=== PATIENT | female | born 1950 | race Caucasian/White ===

== ENCOUNTER 2017-02-04 08:49 | Inpatient (IN) | payer MEDICARE, MEDICAID ==
[~2017-02-04] VITALS: Ht 157.5 cm; Wt 134.5 kg
[2017-02-04] MEDS ORDERED: MORPHINE SULFATE 4 MG/ML, 1ML ONE ×2 (09:59→10:58)
[2017-02-04] MEDS ORDERED: ALBUTEROL/IPRATROPIUM 2.5MG/0.5MG, 3 ML NPPB ONE (10:00)
[2017-02-04] MEDS ORDERED: CEFTRIAXONE PMX 1GM/50ML 50 ML IVPB ONE (10:00)
[2017-02-04] MEDS ORDERED: AZITHROMYCIN 500 MG in SODIUM CHLORIDE 0.9% 250 ML IVPB ONE (10:00)
[2017-02-04] MEDS ORDERED: SODIUM CHLORIDE 0.9% 1,000ML IVBOLUS ONE ×2 (10:00→11:30)
[2017-02-04] MEDS ORDERED: SODIUM CHLORIDE FLUSH 10ML SYR IVF ONE (10:00)
[2017-02-04] MEDS: MORPHINE SULFATE 4 MG/ML, 1ML IVPush PRN ×2 (10:01→11:00)
[2017-02-04 10:40] LABS: BLOOD UREA NITROGEN 16 mg/dL (7-18)
[2017-02-04 10:44] LABS: IS PT STATUS REG ER OR PRE ER? YES
[2017-02-04] MEDS ORDERED: CEFTRIAXONE PMX 1GM/50ML 50 ML ONE (10:45)
[2017-02-04] MEDS ORDERED: ALBUTEROL/IPRATROPIUM 2.5MG/0.5MG, 3 ML ONE (11:05)
[2017-02-04] MEDS ORDERED: METOPROLOL TARTRATE 50 MG TABLET ONE (11:23)
[2017-02-04] MEDS ORDERED: METOPROLOL SUCCINATE 25 MG TAB.ER.24H PO STA (11:28)
[2017-02-04] MEDS ORDERED: ENOXAPARIN 120MG/0.8ML SQ ONE (12:00)
[2017-02-04] MEDS ORDERED: DIPH25CA61 PO (12:03)
[2017-02-04] MEDS ORDERED: PRED5TAB PO (12:03)
[2017-02-04] MEDS ORDERED: MAGN400T26 PO (12:03)
[2017-02-04] MEDS ORDERED: FERR325T10 PO (12:03)
[2017-02-04] MEDS ORDERED: SERT50TA PO (12:03)
[2017-02-04] MEDS ORDERED: MONT10TA6 PO (12:03)
[2017-02-04] MEDS ORDERED: HYDR200T PO (12:03)
[2017-02-04] MEDS ORDERED: OMEP-110 PO (12:03)
[2017-02-04] MEDS ORDERED: CYAN500T42 PO (12:03)
[2017-02-04] MEDS ORDERED: FOLI-17 PO (12:03)
[2017-02-04] MEDS ORDERED: PRAV20TA PO (12:03)
[2017-02-04] MEDS ORDERED: METH2.5T PO (12:03)
[2017-02-04] MEDS ORDERED: ALPR1TAB6 PO (12:03)
[2017-02-04] MEDS ORDERED: BACL-19 PO (12:03)
[2017-02-04] MEDS ORDERED: HYDR-882 PO (12:03)
[2017-02-04] MEDS ORDERED: ARIP5TAB6 PO (12:03)
[2017-02-04] MEDS ORDERED: ALEN70TA5 PO (12:03)
[2017-02-04] MEDS ORDERED: NALT50TA PO (12:03)
[2017-02-04] MEDS ORDERED: METO25TA35 PO (12:03)
[2017-02-04] MEDS ORDERED: ALBUTEROL SULFATE 2.5 MG/3 ML ONE (12:59)
[2017-02-04] MEDS ORDERED: DILTIAZEM 5 MG/ML, 5ML IVPush PRN (13:00)
[2017-02-04] MEDS ORDERED: BISACODYL 10 MG SUPP PR PRN (13:00)
[2017-02-04] MEDS ORDERED: Enoxaparin 1 mg/kg protocol SQ SCH (13:00)
[2017-02-04] MEDS ORDERED: POLYETHYLENE GLYCOL 17 GM PACKET PO PRN (13:00)
[2017-02-04] MEDS ORDERED: DOCUSATE 100 MG CAPSULE PO PRN (13:00)
[2017-02-04] MEDS: ALBUTEROL SULFATE 2.5 MG/3 ML NPPB SCH ×3 (13:00→19:30)
[2017-02-04] MEDS: CEFTRIAXONE PMX 1GM/50ML 50 ML IV SCH (13:00)
[2017-02-04] MEDS ORDERED: ONDANSETRON 2MG/ML, 2ML IVPush PRN (13:00)
[2017-02-04] MEDS ORDERED: MORPHINE SULFATE 4 MG/ML, 1ML IVPush PRN (13:00)
[2017-02-04 13:26] LABS: IS PT STATUS REG ER OR PRE ER? YES
[2017-02-04] MEDS: DOXYCYCLINE 100 MG in DEXTROSE 5% 250 ML IV SCH (14:10)
[2017-02-04 16:40] VITALS: BP 131/76
[2017-02-04] MEDS: FERROUS SULFATE 325 MG TABLET PO SCH ×2 (16:59→21:12)
[2017-02-04] MEDS ORDERED: ENOXAPARIN 120MG/0.8ML SQ SCH (17:00)
[2017-02-04] MEDS: SODIUM CHLORIDE 0.9% 1,000 ML IV SCH ×2 (17:03→21:12)
[2017-02-04 18:48] LABS: IS PT STATUS REG ER OR PRE ER? NO
[2017-02-04 19:00] VITALS: BP 129/90
[2017-02-04] MEDS: HYDROXYCHLOROQUINE 200 MG TABLET PO SCH (21:11)
[2017-02-04] MEDS: ALPRazolam 1MG TABLET PO PRN (21:11)
[2017-02-04] MEDS: PRAVASTATIN 20 MG TABLET PO SCH (21:12)
[2017-02-04] MEDS: ARIPIPRAZOLE 5 MG TABLET PO SCH (21:12)
[2017-02-04] MEDS: METOPROLOL TARTRATE 25 MG TABLET PO SCH (21:12)
[2017-02-04] MEDS: ENOXAPARIN 120MG/0.8ML SQ SCH (22:57)
[2017-02-05 01:02] VITALS: BP 136/56
[2017-02-05] MEDS: DOXYCYCLINE 100 MG in DEXTROSE 5% 250 ML IV SCH ×2 (01:17→15:09)
[2017-02-05] MEDS ORDERED: ACETAMINOPHEN 325 MG TABLET PO PRN (01:30)
[2017-02-05] MEDS: GUAIFENESIN/DM 200-20MG, 10ML UDC PO PRN (04:19)
[2017-02-05 06:26] LABS: ASPARTATE AMINO TRANSFERASE 23 U/L (15-37); BLOOD UREA NITROGEN 14 mg/dL (7-18)
[2017-02-05 06:36] VITALS: BP 97/54
[2017-02-05] MEDS: ALBUTEROL SULFATE 2.5 MG/3 ML NPPB SCH ×5 (07:00→22:53)
[2017-02-05] MEDS: METOPROLOL TARTRATE 25 MG TABLET PO SCH ×2 (09:05→20:15)
[2017-02-05] MEDS: SENNA/DOCUSATE TABLET PO SCH (09:05)
[2017-02-05] MEDS: MONTELUKAST 10 MG TABLET PO SCH (09:05)
[2017-02-05] MEDS: SERTRALINE 50MG TABLET PO SCH (09:05)
[2017-02-05] MEDS: MAGNESIUM OXIDE 400 MG TABLET PO SCH (09:06)
[2017-02-05] MEDS: FERROUS SULFATE 325 MG TABLET PO SCH ×3 (09:06→20:15)
[2017-02-05] MEDS: FOLIC ACID 1 MG TABLET PO SCH (09:06)
[2017-02-05] MEDS: HYDROXYCHLOROQUINE 200 MG TABLET PO SCH ×2 (09:06→20:15)
[2017-02-05] MEDS: OMEPRAZOLE 20 MG CAPSULE.DR PO SCH (09:06)
[2017-02-05] MEDS: ENOXAPARIN 120MG/0.8ML SQ SCH ×2 (11:23→22:33)
[2017-02-05] MEDS: methylPREDNISolone SOD SUCC 125 MG/2 ML IVPush SCH ×3 (11:23→22:33)
[2017-02-05] MEDS: CEFTRIAXONE PMX 1GM/50ML 50 ML IV SCH (14:10)
[2017-02-05] MEDS: SODIUM CHLORIDE 0.9% 1,000 ML IV SCH ×2 (14:10→22:38)
[2017-02-05 14:30] VITALS: BP 110/71
[2017-02-05] MEDS: ALPRazolam 1MG TABLET PO PRN ×2 (17:14→22:33)
[2017-02-05 20:11] VITALS: BP 127/79
[2017-02-05] MEDS: PRAVASTATIN 20 MG TABLET PO SCH (20:15)
[2017-02-05] MEDS: ARIPIPRAZOLE 5 MG TABLET PO SCH (20:15)
[2017-02-06] MEDS: DOXYCYCLINE 100 MG in DEXTROSE 5% 250 ML IV SCH ×2 (01:20→14:17)
[2017-02-06 01:23] VITALS: BP 146/88
[2017-02-06] MEDS: SODIUM CHLORIDE 0.9% 1,000 ML IV SCH ×2 (03:45→08:43)
[2017-02-06] MEDS: methylPREDNISolone SOD SUCC 125 MG/2 ML IVPush SCH ×4 (03:45→22:29)
[2017-02-06 06:01] LABS: BLOOD UREA NITROGEN 10 mg/dL (7-18)
[2017-02-06] MEDS: ALBUTEROL SULFATE 2.5 MG/3 ML NPPB SCH ×4 (06:33→20:09)
[2017-02-06 08:08] VITALS: BP 121/76
[2017-02-06] MEDS: SENNA/DOCUSATE TABLET PO SCH (08:35)
[2017-02-06] MEDS: MAGNESIUM OXIDE 400 MG TABLET PO SCH (08:41)
[2017-02-06] MEDS: HYDROXYCHLOROQUINE 200 MG TABLET PO SCH ×2 (08:41→19:48)
[2017-02-06] MEDS: SERTRALINE 50MG TABLET PO SCH (08:41)
[2017-02-06] MEDS: FOLIC ACID 1 MG TABLET PO SCH (08:41)
[2017-02-06] MEDS: FERROUS SULFATE 325 MG TABLET PO SCH ×3 (08:41→19:48)
[2017-02-06] MEDS: MONTELUKAST 10 MG TABLET PO SCH (08:41)
[2017-02-06] MEDS: OMEPRAZOLE 20 MG CAPSULE.DR PO SCH (08:41)
[2017-02-06] MEDS: METOPROLOL TARTRATE 25 MG TABLET PO SCH ×2 (08:41→19:48)
[2017-02-06] MEDS: ENOXAPARIN 120MG/0.8ML SQ SCH ×2 (10:20→22:29)
[2017-02-06] MEDS: CEFTRIAXONE PMX 1GM/50ML 50 ML IV SCH (13:31)
[2017-02-06 19:25] VITALS: BP 129/73
[2017-02-06] MEDS: ARIPIPRAZOLE 5 MG TABLET PO SCH (19:48)
[2017-02-06] MEDS: PRAVASTATIN 20 MG TABLET PO SCH (19:49)
[2017-02-07] MEDS: DOXYCYCLINE 100 MG in DEXTROSE 5% 250 ML IV SCH ×2 (01:44→15:22)
[2017-02-07 02:07] VITALS: BP 133/73
[2017-02-07] MEDS: methylPREDNISolone SOD SUCC 125 MG/2 ML IVPush SCH ×4 (05:07→22:35)
[2017-02-07 05:28] LABS: BLOOD UREA NITROGEN 11 mg/dL (7-18)
[2017-02-07] MEDS: ALBUTEROL SULFATE 2.5 MG/3 ML NPPB SCH ×4 (05:48→20:15)
[2017-02-07 06:18] LABS: DIFF TOTAL CELLS COUNTED 100 CELL DIFF
[2017-02-07 06:41] LABS: VERIFY COUNTS? YES
[2017-02-07 07:45] VITALS: BP 143/79
[2017-02-07] MEDS: SENNA/DOCUSATE TABLET PO SCH (07:45)
[2017-02-07] MEDS: HYDROXYCHLOROQUINE 200 MG TABLET PO SCH ×2 (07:57→20:53)
[2017-02-07] MEDS: MONTELUKAST 10 MG TABLET PO SCH (07:57)
[2017-02-07] MEDS: OMEPRAZOLE 20 MG CAPSULE.DR PO SCH (07:57)
[2017-02-07] MEDS: FOLIC ACID 1 MG TABLET PO SCH (07:57)
[2017-02-07] MEDS: FERROUS SULFATE 325 MG TABLET PO SCH ×3 (07:57→20:53)
[2017-02-07] MEDS: SERTRALINE 50MG TABLET PO SCH (07:57)
[2017-02-07] MEDS: MAGNESIUM OXIDE 400 MG TABLET PO SCH (08:00)
[2017-02-07] MEDS: METOPROLOL TARTRATE 25 MG TABLET PO SCH ×2 (08:04→20:53)
[2017-02-07] MEDS: ENOXAPARIN 120MG/0.8ML SQ SCH ×2 (11:06→22:34)
[2017-02-07] MEDS: CEFTRIAXONE PMX 1GM/50ML 50 ML IV SCH (13:02)
[2017-02-07 14:00] VITALS: BP 138/83
[2017-02-07 18:43] VITALS: BP 140/83
[2017-02-07] MEDS: ARIPIPRAZOLE 5 MG TABLET PO SCH (20:53)
[2017-02-07] MEDS: PRAVASTATIN 20 MG TABLET PO SCH (20:53)
[2017-02-07] MEDS: DOXYCYCLINE 100MG TABLET PO SCH (20:54)
[2017-02-07] MEDS ORDERED: DOXYCYCLINE 100MG TABLET PO SCH (21:00)
[2017-02-08 00:34] VITALS: BP 146/81
[2017-02-08] MEDS: methylPREDNISolone SOD SUCC 125 MG/2 ML IVPush SCH ×3 (05:07→15:37)
[2017-02-08 05:46] LABS: BLOOD UREA NITROGEN 15 mg/dL (7-18)
[2017-02-08] MEDS: ALBUTEROL SULFATE 2.5 MG/3 ML NPPB SCH ×3 (07:53→19:58)
[2017-02-08] MEDS ORDERED: FUROSEMIDE 40 MG/4 ML IV ONE (08:00)
[2017-02-08] MEDS: SENNA/DOCUSATE TABLET PO SCH (08:48)
[2017-02-08] MEDS: MONTELUKAST 10 MG TABLET PO SCH (09:00)
[2017-02-08] MEDS: MAGNESIUM OXIDE 400 MG TABLET PO SCH (09:00)
[2017-02-08] MEDS: METOPROLOL TARTRATE 25 MG TABLET PO SCH ×2 (09:00→21:24)
[2017-02-08] MEDS: FOLIC ACID 1 MG TABLET PO SCH (09:00)
[2017-02-08] MEDS: SERTRALINE 50MG TABLET PO SCH (09:00)
[2017-02-08] MEDS: FERROUS SULFATE 325 MG TABLET PO SCH ×3 (09:00→21:24)
[2017-02-08] MEDS: DOXYCYCLINE 100MG TABLET PO SCH ×2 (09:00→21:25)
[2017-02-08] MEDS: OMEPRAZOLE 20 MG CAPSULE.DR PO SCH (09:00)
[2017-02-08] MEDS: HYDROXYCHLOROQUINE 200 MG TABLET PO SCH ×2 (09:01→21:25)
[2017-02-08 09:04] VITALS: BP 115/74
[2017-02-08] MEDS: ENOXAPARIN 120MG/0.8ML SQ SCH (10:48)
[2017-02-08] MEDS: CEFTRIAXONE PMX 1GM/50ML 50 ML IV SCH (13:10)
[2017-02-08 15:02] VITALS: BP 155/84
[2017-02-08 19:15] VITALS: BP 117/73
[2017-02-08] MEDS: DABIGATRAN 150 MG CAPSULE PO SCH (21:24)
[2017-02-08] MEDS: ARIPIPRAZOLE 5 MG TABLET PO SCH (21:25)
[2017-02-08] MEDS: PRAVASTATIN 20 MG TABLET PO SCH (21:25)
[2017-02-08] MEDS: methylPREDNISolone SOD SUCC 40 MG/ML IVPush SCH (21:35)
[2017-02-09 01:29] VITALS: BP 165/96
[2017-02-09] MEDS: GUAIFENESIN/DM 200-20MG, 10ML UDC PO PRN (03:40)
[2017-02-09] MEDS: ALBUTEROL SULFATE 2.5 MG/3 ML NPPB SCH ×2 (04:12→06:45)
[2017-02-09 06:02] LABS: BLOOD UREA NITROGEN 17 mg/dL (7-18)
[2017-02-09 08:00] VITALS: BP 138/83
[2017-02-09] MEDS: methylPREDNISolone SOD SUCC 40 MG/ML IVPush SCH (08:13)
[2017-02-09] MEDS: HYDROXYCHLOROQUINE 200 MG TABLET PO SCH (08:14)
[2017-02-09] MEDS: MAGNESIUM OXIDE 400 MG TABLET PO SCH (08:14)
[2017-02-09] MEDS: OMEPRAZOLE 20 MG CAPSULE.DR PO SCH (08:14)
[2017-02-09] MEDS: FOLIC ACID 1 MG TABLET PO SCH (08:14)
[2017-02-09] MEDS: METOPROLOL TARTRATE 25 MG TABLET PO SCH (08:15)
[2017-02-09] MEDS: MONTELUKAST 10 MG TABLET PO SCH (08:15)
[2017-02-09] MEDS: DOXYCYCLINE 100MG TABLET PO SCH (08:15)
[2017-02-09] MEDS: FERROUS SULFATE 325 MG TABLET PO SCH (08:15)
[2017-02-09] MEDS: SENNA/DOCUSATE TABLET PO SCH (08:16)
[2017-02-09] MEDS: SERTRALINE 50MG TABLET PO SCH (08:16)
[2017-02-09] MEDS: DABIGATRAN 150 MG CAPSULE PO SCH (08:16)
[2017-02-09] MEDS ORDERED: ACID1TAB7 PO (12:09)
[2017-02-09] MEDS ORDERED: ALBU8.5H3 INH (12:09)
[2017-02-09] MEDS ORDERED: POTA8CAP PO (12:09)
[2017-02-09] MEDS ORDERED: CEFD300C37 PO (12:09)
[2017-02-09] MEDS ORDERED: ALPR0.254 PO (12:09)
[2017-02-09] MEDS ORDERED: PRED10TA PO (12:09)
[2017-02-09] MEDS ORDERED: METO25TA35 PO (12:09)
[2017-02-09] MEDS ORDERED: FURO-93 PO (12:09)
[2017-02-09] MEDS ORDERED: DABI150C PO (12:09)
[2017-02-09] MEDS ORDERED: DOXY100T PO (12:09)
[2017-02-09] MEDS ORDERED: LACTOBACILLUS CHEW TABLET PO SCH (16:00)
[2017-02-09] MEDS ORDERED: CEFDINIR 300 MG CAPSULE PO SCH (21:00)
== END 2017-02-09 14:50 | disposition home or self-care (01) | DRG 871 ==
LOC: ED 11:26 → EDIP 11:51 → SUATTDRO 12:05 → 5SO 16:17
PROVIDERS: ADMIT Internal Medicine; ATTEND Internal Medicine
DX: A41.9 Sepsis, unspecified organism (principal); J96.01 Acute respiratory failure with hypoxia; J18.1 Lobar pneumonia, unspecified organism; I50.33 Acute on chronic diastolic (congestive) heart failure; I63.9 Cerebral infarction, unspecified; D68.69 Other thrombophilia; Z68.43 Body mass index [BMI] 50.0-59.9, adult; E87.2 Acidosis; J45.21 Mild intermittent asthma with (acute) exacerbation; I48.0 Paroxysmal atrial fibrillation; M81.0 Age-related osteoporosis without current pathological fracture; D63.8 Anemia in other chronic diseases classified elsewhere; E66.01 Morbid (severe) obesity due to excess calories; E78.5 Hyperlipidemia, unspecified; F32.9 Major depressive disorder, single episode, unspecified; F41.9 Anxiety disorder, unspecified; G47.33 Obstructive sleep apnea (adult) (pediatric); I11.0 Hypertensive heart disease with heart failure; I25.10 Atherosclerotic heart disease of native coronary artery without angina pectoris; M06.9 Rheumatoid arthritis, unspecified; M32.9 Systemic lupus erythematosus, unspecified; R65.20 Severe sepsis without septic shock; Z98.84 Bariatric surgery status; I25.2 Old myocardial infarction; Z79.899 Other long term (current) drug therapy
CPT/HCPCS: 36415; 71010; 80048; 80053; 80061; 82040; 83605; 83735; 84100; 84145; 84146; 84443; 84484; 85025; 87040; 93005; 93306; 94640; 96361; 96365; 96368; 96375; 96376; J0456; J0696; J1650; J1940; J7060; J7613; J7620; J2920; J2930; J7030; J7050; J7512